=== PATIENT | female | born 2000 | race American Indian/Alaskan Native ===

== ENCOUNTER 2019-01-12 13:22 | Emergency (ER) | payer SELFPAY ==
[2019-01-12 13:31] VITALS: BP 106/69
--- NOTE | 2019-01-12 13:32 | Emergency Department Report ---
Chief Complaint: Sore Throat Stated Complaint: STREP THROAT/PAIN Time Seen by Provider: 01/12/19 13:30 - HPI History of Present Illness: sore throat abc intact rx none lmp 12/21/18 here with son mse completed - Exam Vital Signs: Vital Signs 01/12/19 13:29 Temperature 99.5 F Pulse Rate 98 H Respiratory 16 Rate Blood Pressure 106/69 O2 Sat by Pulse 98 Oximetry MSE screening note: Focused history and physical exam performed. Due to findings the following was ordered: ED Disposition for MSE Condition: Stable
--- NOTE | 2019-01-12 14:48 | Emergency Department Report ---
HPI - General Chief Complaint: Sore Throat Time Seen by Provider: 01/12/19 13:30 - HPI HPI: 18-year-old -Turkish female presents to the emergency department with a 2-3 day history of a sore throat. She also complains of some head congestion and body aches and fatigue. She has not taken anything for her symptoms prior to presentation. No recent travel or sick contacts at home. Her son is currently being seen for ear infection and fever. ED Past Medical Hx - Past Medical History Previous Medical History?: No - Surgical History Past Surgical History?: No - Social History Smoking Status: Never Smoker Substance Use Type: None - Medications Home Medications: Home Medications Medication Instructions Recorded Confirmed Last Taken Type Amoxicillin 500 mg PO TID #30 capsule 01/12/19 Unknown Rx ED Review of Systems ROS: Stated complaint: STREP THROAT/PAIN Other details as noted in HPI Comment: All other systems reviewed and negative Constitutional: denies: chills, malaise Eyes: denies: eye pain, vision change ENT: ear pain, throat pain Respiratory: denies: cough, shortness of breath Cardiovascular: denies: chest pain, palpitations Gastrointestinal: denies: abdominal pain, vomiting Genitourinary: denies: dysuria, frequency Musculoskeletal: denies: back pain, arthralgia Skin: denies: rash, lesions Neurological: denies: headache, weakness Physical Exam - Physical Exam Vital Signs: Vital Signs 01/12/19 13:29 Temperature 99.5 F Pulse Rate 98 H Respiratory 16 Rate Blood Pressure 106/69 O2 Sat by Pulse 98 Oximetry Physical Exam: GENERAL: The patient is well-developed well-nourished. HEENT: Normocephalic. Atraumatic. Patient has moist mucous membranes. Normal appearing bilateral external ear canals and tympanic membranes. She has bilateral tonsillar hypertrophy and erythema. No exudates. No drooling or trismus. EYES: Extraocular motions are intact. Pupils are equal and reactive to light bilaterally. NECK: Supple. Trachea is midline. CHEST/LUNGS: Clear to auscultation. There is no respiratory distress noted. HEART/CARDIOVASCULAR: Regular. There is no tachycardia. There is no obvious murmur. ABDOMEN: Abdomen is soft, There is no abdominal distention. SKIN: Skin is warm and dry. NEURO: The patient is awake, alert, and oriented. The patient is cooperative. The patient has no focal neurologic deficits. The patient has normal speech. MUSCULOSKELETAL: There is no tenderness or deformity. There is no evidence of acute injury. ED Course Vital Signs 01/12/19 13:29 Temperature 99.5 F Pulse Rate 98 H Respiratory 16 Rate Blood Pressure 106/69 O2 Sat by Pulse 98 Oximetry ED Medical Decision Making - Medical Decision Making Patient presents with a few days of a sore throat as well as some other upper respiratory type symptoms. Rapid strep test was negative the patient does have bilateral tonsillar hypertrophy and erythema. She will placed on antibiotics and instructed to follow up with primary care. She will return to the ER with any worsening of her symptoms or any acute distress. - Differential Diagnosis viral pharyngitis, strep pharyngitis, mononucleosis Critical Care Time: No Critical care attestation.: If time is entered above; I have spent that time in minutes in the direct care of this critically ill patient, excluding procedure time. ED Disposition Clinical Impression: Pharyngitis Qualifiers: Pharyngitis/tonsillitis etiology: unspecified etiology Qualified Code(s): J02.9 - Acute pharyngitis, unspecified Disposition: - TO HOME OR SELFCARE Is pt being admited?: No Condition: Stable Instructions: Strep Throat (ED) Additional Instructions: Take the antibiotics as prescribed. Please use lots of handwashing and do not share any food or drink with anyone so you do not spread infection. Return to the emergency Department with any worsening of your symptoms or any acute distress. You can take Tylenol every 4 hours and ibuprofen every 6 hours, using weight-based dosing on the back of the bottle, as needed for fever or discomfort. Prescriptions: Amoxicillin 500 mg PO TID #30 capsule Referrals: [facility] [Outside] - 3-5 Days [facility] [Outside] - 3-5 Days [facility] [Outside] - 3-5 Days Time of Disposition: 14:47
== END 2019-01-12 15:34 | disposition home or self-care (01) ==
LOC: ED 13:22
DX: J02.9 Acute pharyngitis, unspecified (principal)
CPT/HCPCS: 87116; 87430

== ENCOUNTER 2019-06-15 13:16 | Emergency (ER) | payer OTHER ==
--- NOTE | 2019-06-15 13:32 | Event Note ---
ED Screening Note Date of service: 06/15/19 Time: 13:30 ED Screening Note: 18 y o female presents with fatigue , lightheaded and weakness x couple of sates Nexplanon implant x 1 year This initial assessment/diagnostic orders/clinical plan/treatment(s) is/are subject to change based on patients health status, clinical progression and re- assessment by fellow clinical providers in the ED. Further treatment and workup at subsequent clinical providers discretion. Patient/guardian urged not to elope from the ED as their condition may be serious if not clinically assessed and managed. Initial orders include: cbc,bmp,ua, upt
[2019-06-15 13:34] VITALS: BP 104/64
[2019-06-15 13:52] LABS: Basophils % (Auto) 0.4 % (0.0-1.8); Eosinophils % (Auto) 0.4 % (0.0-4.3); Hematocrit 39.7 % (30.3-42.9); Hemoglobin 13.4 gm/dl (10.1-14.3); Lymphocytes # (Auto) 2.6 K/mm3 (1.2-5.4); Lymphocytes % (Auto) 26.3 % (13.4-35.0); Mean Corpuscular HGB Conc 34 % (30-34); Mean Corpuscular Volume 91 fl (79-97); Monocytes # (Auto) 0.5 K/mm3 (0.0-0.8); Monocytes % (Auto) 5.4 % (0.0-7.3); Platelet Count 277 K/mm3 (140-440); Red Blood Count 4.37 M/mm3 (3.65-5.03); Red Cell Distribution Width 13.8 % (13.2-15.2)
[2019-06-15 14:09] LABS: BUN/Creatinine Ratio 23; Blood Urea Nitrogen 16 mg/dL (7-17); Calcium 9.2 mg/dL (8.4-10.2); Hemolysis Index 9
--- NOTE | 2019-06-15 15:34 | Emergency Department Report ---
- General Chief complaint: Weakness Stated complaint: DIZZY/FATIQUE Time Seen by Provider: 06/15/19 13:29 Source: patient Mode of arrival: Ambulatory Limitations: No Limitations - History of Present Illness Initial comments: 18-year-old female with no significant past medical history presents to the hospital complaining of feeling tired and fatigued the last 2 days. 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 She states she has a history of anemia during and reports that she feels similar to those symptoms. She was seen at an urgent care prior to arrival and got diagnosed with a mild UTI with a negative test. She was advised to come to the ER to have blood drawn. Positive nausea reported without vomiting or diarrhea. No complaints of fever, pain, or rash. Patient thinks she is eating appropriately. - Related Data Previous Rx's Medication Instructions Recorded Last Taken Type RX: Amoxicillin 500 mg PO TID #30 capsule 01/12/19 Unknown Rx Allergies Allergy/AdvReac Type Severity Reaction Status Date / Time No Known Allergies Allergy Verified 01/12/19 13:29 ED Review of Systems ROS: Stated complaint: DIZZY/FATIQUE Other details as noted in HPI Comment: All other systems reviewed and negative ED Past Medical Hx - Past Medical History Previous Medical History?: No - Surgical History Past Surgical History?: No - Social History Smoking Status: Never Smoker Substance Use Type: Marijuana - Medications Home Medications: Home Medications Medication Instructions Recorded Confirmed Last Taken Type RX: Amoxicillin 500 mg PO TID #30 capsule 01/12/19 Unknown Rx ED Physical Exam - General Limitations: No Limitations - Other Other exam information: Normal: No acute distress Head: Atraumatic Eyes: Normal appearance, pupils equally reactive to light, extraocular movements intact ENT: Moist mucous membranes Neck: Normal appearance Chest: Clear to auscultation bilaterally, no wheezes, rales, crackles Cardiovascular: Regular rate and rhythm Abdomen: Soft, nontender, nondistended, no rebound or guarding, normal bowel sounds Back: Normal inspection Extremity: Normal appearance, full range of motion Neuro: Alert and oriented 3, speech normal, no gross motor sensory deficit Psych: Appropriate Skin: No rash ED Course Vital Signs 06/15/19 13:31 Temperature 98.7 F Pulse Rate 73 Respiratory 16 Rate Blood Pressure 104/64 O2 Sat by Pulse 98 Oximetry ED Medical Decision Making - Lab Data Result diagrams: 06/15/19 13:40 06/15/19 13:40 Lab Results 06/15/19 06/15/19 Range/Units 13:40 13:40 WBC 9.8 (4.5-11.0) K/mm3 RBC 4.37 (3.65-5.03) M/mm3 Hgb 13.4 (10.1-14.3) gm/dl Hct 39.7 (30.3-42.9) % MCV 91 (79-97) fl MCH 31 (28-32) pg MCHC 34 (30-34) % RDW 13.8 (13.2-15.2) % Plt Count 277 (140-440) K/mm3 Lymph % (Auto) 26.3 (13.4-35.0) % [place] % (Auto) 5.4 (0.0-7.3) % Eos % (Auto) 0.4 (0.0-4.3) % Baso % (Auto) 0.4 (0.0-1.8) % Lymph # 2.6 (1.2-5.4) K/mm3 [place] # 0.5 (0.0-0.8) K/mm3 Eos # 0.0 (0.0-0.4) K/mm3 Baso # 0.0 (0.0-0.1) K/mm3 Seg Neutrophils % 67.5 (40.0-70.0) % Seg Neutrophils # 6.6 (1.8-7.7) K/mm3 Sodium 136 L (137-145) mmol/L Potassium 3.9 (3.6-5.0) mmol/L Chloride 100.2 (98-107) mmol/L Carbon Dioxide 24 (22-30) mmol/L Anion Gap 16 mmol/L BUN 16 (7-17) mg/dL Creatinine 0.7 (0.7-1.2) mg/dL Estimated GFR > 60 ml/min BUN/Creatinine Ratio 23 % Glucose 77 (65-100) mg/dL Calcium 9.2 (8.4-10.2) mg/dL - Medical Decision Making Patient diagnosed with UTI and prescribed antibiotics. Labs unremarkable. Repeat UA/ test here canceled. Patient informed to get sleep and c omplete her antibiotics and follow-up. - Differential Diagnosis anemia, fatigue, infection Critical Care Time: No Critical care attestation.: If time is entered above; I have spent that time in minutes in the direct care of this critically ill patient, excluding procedure time. ED Disposition Clinical Impression: Fatigue Disposition: [id number]-01 TO HOME OR SELFCARE Is pt being admited?: No Does the pt Need Aspirin: No Condition: Stable Instructions: Fatigue (ED) Additional Instructions: Take your medications as prescribed. Follow-up with your doctor or the clinic/doctor provided. Return if symptoms worsen. Referrals: PRIMARY CARE [Primary Care Provider] - 3-5 Days [facility] [Provider Group] - 3-5 Days Time of Disposition: 15:35
[2019-06-15 15:41] LABS: HCG Qualitative,Urine Negative (Negative)
[2019-06-15 15:43] LABS: Bilirubin,Urine NEG (Negative); Blood,Urine NEG (Negative); Color,Urine Yellow (Yellow); Mucus,Urine FEW /HPF; Protein,Urine <15 mg/dL mg/dL (Negative); Urobilinogen,Urine < 2.0 mg/dL (<2.0)
== END 2019-06-15 15:57 | disposition home or self-care (01) ==
LOC: ED 13:16
DX: R53.83 Other fatigue (principal); Z32.02 Encounter for pregnancy test, result negative; N39.0 Urinary tract infection, site not specified; F12.10 Cannabis abuse, uncomplicated; Z86.2 Personal history of diseases of the blood and blood-forming organs and certain disorders involving the immune mechanism
CPT/HCPCS: 36415; 80048; 81001; 81025; 85025; 99283